=== PATIENT | male | born 1980 | race Two or more races ===

== ENCOUNTER 2021-09-26 12:23 | Emergency (ER) | payer OTHER ==
[~2021-09-26] VITALS: Ht 165.1 cm; Wt 81.8 kg
[2021-09-26] MEDS ORDERED: LIDOCAINE 1% HCL (LOCAL ANESTH.) INJ 20ML MDV IJ ONE (13:15)
[2021-09-26 13:22] VITALS: BP 127/94
== END 2021-09-26 13:33 | disposition home or self-care (01) ==
LOC: ER 12:23
DX: S61.210A Laceration without foreign body of right index finger without damage to nail, initial encounter (principal); W26.8XXA Contact with other sharp object(s), not elsewhere classified, initial encounter; Y93.89 Activity, other specified; Y92.89 Other specified places as the place of occurrence of the external cause; Y99.8 Other external cause status
CPT/HCPCS: 12001; 99282; J2001

== ENCOUNTER 2022-06-15 14:21 | Emergency (ER) | payer MEDICAID, OTHER ==
[~2022-06-15] VITALS: Ht 165.1 cm; Wt 75.5 kg
[2022-06-15] MEDS ORDERED: HYDROcodone-ACET 10/325MG TAB PO ONE (15:15)
[2022-06-15 15:41] LABS: Basophils # (auto) 0.1 10 ^3/uL (0-0.2); Eosinophils # (auto) 0.2 10 ^3/uL (0-0.8); Eosinophils % (auto) 2.4 % (0.0-7.0); Hematocrit 40.6 % (41.0-53.0); Hemoglobin 13.8 g/dL (13.5-17.5); Lymphocytes # (auto) 1.8 10 ^3/uL (0.4-5.4); Lymphocytes % (auto) 22.5 % (10.0-50.0); Mean Corpuscular Hemoglobin 31.6 pg (28.0-32.0); Mean Corpuscular Hgb Conc. 33.9 g/dL (32.0-36.0); Mean Corpuscular Volume 93.3 fL (80.0-100.0); Monocytes # (auto) 0.6 10 ^3/uL (0-1.3); Monocytes % (auto) 7.8 % (0.0-12.0); Neutrophils # (auto) 5.3 10 ^3/uL (1.6-8.6); Neutrophils % (auto) 66.3 % (37.0-80.0); Nucleated Red Blood Cells % 0.1 %; Red Blood Cells 4.35 10^6/uL (4.5-5.90); Red Cell Distribution Width 13.6 % (11.8-14.3); White Blood Cell 8.1 10^3/uL (4.4-10.8)
[2022-06-15 15:59] LABS: Albumin 3.8 g/dL (3.4-5.0); Calcium 9.2 mg/dL (8.5-10.1); Potassium 3.8 mmol/L (3.5-5.1)
[2022-06-15 16:02] LABS: Bilirubin, Total 0.6 mg/dL (0.2-1.0); Total Protein 7.1 g/dL (6.4-8.2)
[2022-06-15] MEDS ORDERED: HYDR1TAB97 PO (20:03)
[2022-06-15 20:14] VITALS: BP 100/63
== END 2022-06-15 20:36 | disposition home or self-care (01) ==
LOC: ER 14:21
DX: S82.891A Other fracture of right lower leg, initial encounter for closed fracture (principal); X58.XXXA Exposure to other specified factors, initial encounter; Y93.89 Activity, other specified; Y92.89 Other specified places as the place of occurrence of the external cause; Y99.8 Other external cause status
CPT/HCPCS: 29515; 36415; 73610; 73700; 80053; 83605; 85025; 87040; 93971

== ENCOUNTER 2023-03-15 13:41 | Emergency (ER) | payer SELFPAY ==
[~2023-03-15] VITALS: Ht 162.6 cm; Wt 54.5 kg
[~2023-03-15 13:41] MED LIST: HYDR1TAB97 PO
[2023-03-15] MEDS ORDERED: LORazepam 2MG/ML-1ML VIAL IV ONE (14:00)
[2023-03-15 14:09] VITALS: BP 128/72; PULSE 112; RESP 16; O2SAT 100
[2023-03-15] MEDS ORDERED: LORA-655 PO (14:45)
[2023-03-15] MEDS ORDERED: LORazepam 0.5 MG TAB PO ONE (15:00)
== END 2023-03-15 14:46 | disposition home or self-care (01) ==
LOC: ER 13:41 → EDUNIT# 13:41 → EDBD 13:41 → ER 14:46
DX: F41.9 Anxiety disorder, unspecified (principal)

== ENCOUNTER 2023-03-15 19:05 | Emergency (ER) | payer SELFPAY ==
[~2023-03-15 19:05] MED LIST changes: +LORA-655 PO
== END 2023-03-15 19:48 | disposition left against medical advice (07) ==
LOC: ER 19:05
DX: F41.9 Anxiety disorder, unspecified (principal); Z53.21 Procedure and treatment not carried out due to patient leaving prior to being seen by health care provider

== ENCOUNTER 2023-07-11 00:59 | Emergency (ER) | payer MEDICAID ==
[~2023-07-11] VITALS: Ht 162.6 cm; Wt 81.8 kg
[2023-07-11] MEDS: NICOTINE 21MG/24 HR TOPICAL PATCH TD ONE (02:58)
[2023-07-11] MEDS ORDERED: HYDR-3682 PO (04:25)
[2023-07-11 04:37] VITALS: BP 143/68; PULSE 94; RESP 18; TEMP 98.2; O2SAT 98
== END 2023-07-11 04:40 | disposition home or self-care (01) ==
LOC: ER 00:59 → EDBD 00:59 → ER 04:40
DX: T14.91XA Suicide attempt, initial encounter (principal); S10.91XA Abrasion of unspecified part of neck, initial encounter; F41.9 Anxiety disorder, unspecified; F12.10 Cannabis abuse, uncomplicated; X83.8XXA Intentional self-harm by other specified means, initial encounter; Y93.89 Activity, other specified; Y92.89 Other specified places as the place of occurrence of the external cause; Y99.8 Other external cause status

== ENCOUNTER 2023-08-19 13:54 | Emergency (ER) | payer MEDICAID ==
[~2023-08-19] VITALS: Ht 165.1 cm; Wt 82.0 kg
[~2023-08-19 13:54] MED LIST changes: +HYDR-3682 PO
[2023-08-19 14:56] VITALS: BP 115/64; PULSE 100; RESP 16; TEMP 97.9; O2SAT 99
[2023-08-19] MEDS ORDERED: IBUP-1456 PO (15:04)
== END 2023-08-19 15:15 | disposition home or self-care (01) ==
LOC: ER 14:03
DX: S82.54XA Nondisplaced fracture of medial malleolus of right tibia, initial encounter for closed fracture (principal); F12.10 Cannabis abuse, uncomplicated; X58.XXXA Exposure to other specified factors, initial encounter; Y93.01 Activity, walking, marching and hiking; Y92.89 Other specified places as the place of occurrence of the external cause; Y99.8 Other external cause status
CPT/HCPCS: 29515; 73610

== ENCOUNTER 2023-09-29 10:57 | Emergency (ER) | payer MEDICAID ==
[~2023-09-29] VITALS: Ht 165.1 cm; Wt 79.9 kg
[~2023-09-29 10:57] MED LIST changes: +IBUP-1456 PO
[2023-09-29 11:46] VITALS: BP 120/58; PULSE 80; RESP 17; TEMP 98.4; O2SAT 97
== END 2023-09-29 12:22 | disposition home or self-care (01) ==
LOC: ER 10:57
DX: S93.601A Unspecified sprain of right foot, initial encounter (principal); F41.9 Anxiety disorder, unspecified; F17.210 Nicotine dependence, cigarettes, uncomplicated; F12.10 Cannabis abuse, uncomplicated; Z79.899 Other long term (current) drug therapy; X58.XXXA Exposure to other specified factors, initial encounter; Y93.89 Activity, other specified; Y92.89 Other specified places as the place of occurrence of the external cause; Y99.8 Other external cause status
CPT/HCPCS: 73630

== ENCOUNTER 2023-11-29 12:51 | Emergency (ER) | payer MEDICAID ==
[~2023-11-29] VITALS: Ht 165.1 cm; Wt 82.1 kg
[2023-11-29 13:32] VITALS: BP 101/70; PULSE 80; RESP 16; O2SAT 97
== END 2023-11-29 17:48 | disposition left against medical advice (07) ==
LOC: ER 12:51
DX: M79.671 Pain in right foot (principal); Z53.21 Procedure and treatment not carried out due to patient leaving prior to being seen by health care provider